=== PATIENT | female | born 1985 | race Caucasian/White ===

== ENCOUNTER 2020-04-28 15:43 | Emergency (ER) | payer MEDICAID ==
[~2020-04-28] VITALS: Ht 170.2 cm; Wt 90.5 kg
--- NOTE | 2020-04-28 16:08 | NUR ---
PATIENT WALKED BACK FROM TRIAGE WITH CHIEF C/O OF "BUMP ON THE INSIDE OF VAGINA NEXT TO CERVIX." PATIENT DENIES VAGINAL DISCHARGE, DENIES PAINFUL URINATION. PATIENT STATES HER SIGNIFICANT OTHER NOTICED BUMP A COUPLE DAYS AGO. NADN, VSS, WARM BLANKET PROVIDED,CALL LIGHT WITHIN REACH.
[2020-04-28 17:11] VITALS: BP 121/89
--- NOTE | 2020-04-28 17:22 | NUR ---
Patient given discharge instructions and prescription and they have confirmed that they understand the instructions. Patient stable and ambulatory with steady gait from ED to private vehicle.
== END 2020-04-28 17:23 | disposition home or self-care (01) ==
LOC: ED 17:00
DX: L40.0 Psoriasis vulgaris (principal); Z76.0 Encounter for issue of repeat prescription; F17.200 Nicotine dependence, unspecified, uncomplicated
CPT/HCPCS: 99283; 99284

== ENCOUNTER 2020-11-21 08:38 | Emergency (ER) | payer MEDICAID ==
[~2020-11-21] VITALS: Ht 172.7 cm; Wt 84.0 kg
[2020-11-21 08:45] VITALS: BP 127/84
--- NOTE | 2020-11-21 09:23 | NUR ---
COVID SWAB COLLECTED AND WALKED TO LAB
== END 2020-11-21 10:24 | disposition home or self-care (01) ==
LOC: ED 09:06
DX: U07.1 COVID-19 (principal); B34.9 Viral infection, unspecified; F17.210 Nicotine dependence, cigarettes, uncomplicated; R53.83 Other fatigue
CPT/HCPCS: 71045; 99284; 99406; U0003; U0005

== ENCOUNTER 2020-11-30 11:07 | Emergency (ER) | payer MEDICAID ==
[~2020-11-30] VITALS: Ht 167.6 cm; Wt 84.2 kg
[2020-11-30 11:43] VITALS: BP 111/73
== END 2020-11-30 12:07 | disposition home or self-care (01) ==
LOC: ED 11:53
DX: U07.1 COVID-19 (principal); J06.9 Acute upper respiratory infection, unspecified; L40.0 Psoriasis vulgaris
CPT/HCPCS: 99283; U0003; U0005